=== PATIENT | male | born 1975 | race Caucasian/White ===

== ENCOUNTER 2019-01-04 13:55 | Inpatient (IN) ==
[2019-01-04 15:02] LABS: Bilirubin,Urine Small (Negative); Blood,Urine Negative (Negative); Clarity,Urine Clear (Clear); Color,Urine Dark Yellow (Yellow); Glucose,Urine (UA) Normal (Normal); Ketones,Urine 15 mg/dL (Negative); Leukocyte Esterase,Urine Negative (Negative); Nitrite,Urine Negative (Negative); PH,Urine 5.5 pH Units (5.0-8.0); Protein,Urine 30 mg/dL (Neg-Trace); Specific Gravity,Urine > 1.030 (1.010-1.025); Urobilinogen,Urine Normal (Normal)
[2019-01-04 15:04] LABS: Bacteria,Urine None Seen per hpf (None-Few); Hyaline Casts,Urine Few per lpf (None-Few); Squamous Epithelial Cell,Urine Few per lpf (None-Few); WBC,Urine 0-3 per hpf (0-3)
[2019-01-04 15:18] LABS: Amphetamine Screen,Urine Negative ng/mL (Cutoff=1000); Barbiturate Screen,Urine Negative ng/mL (Cutoff=200); Benzodiazepines Screen,Urine Negative ng/mL (Cutoff=200); Cannabinoid Screen,Urine Positive ng/mL (Cutoff = 50); Cocaine Screen,Urine Negative ng/mL (Cutoff= 300); Opiate Screen,Urine Negative ng/mL (Cutoff=300); Phencyclidine Screen,Urine Negative ng/mL (Cutoff=25)
[2019-01-04 15:26] LABS: Basophils # 0.1 K/mcL (0.0-0.2); Basophils % 0.7 %; Eosinophils % 0.4 %; Hematocrit 42.3 % (37.5-50.1); Hemoglobin 14.7 g/dL (12.9-16.9); Immature Granulocytes % 0.3 % (0-4); Lymphocytes # 2.5 K/mcL (0.6-4.6); Lymphocytes % 24.9 %; Mean Corpuscular HGB Conc 34.8 g/dL (31.6-35.5); Mean Corpuscular Hemoglobin 34.3 pg (28.0-33.3); Mean Corpuscular Volume 98.6 fL (83.0-100.0); Mean Platelet Volume 9.8 fL (9.4-12.4); Monocytes # 0.8 K/mcL (0.0-1.3); Neutrophils # 6.5 K/mcL (1.6-8.9); Platelet Count 175 K/mcL (140-400); Red Blood Count 4.29 M/mcL (4.19-5.50); Red Cell Distribution Width 12.7 % (11.5-14.5); Segmented Neutrophils % 65.7 %
[2019-01-04 15:39] LABS: Acetaminophen < 10 mcg/mL (10-20); BUN/Creatinine Ratio 21 (6-26); Blood Urea Nitrogen 21 mg/dL (6-20); Calcium 9.7 mg/dL (8.6-10.3); Carbon Dioxide 23 mEq/L (23-29); Chloride 104 mEq/L (98-107); Ethanol < 10 mg/dL (Less than 10); Glucose 100 mg/dL (70-105); Osmolality,Calculated 283 (280-300); Potassium 3.6 mEq/L (3.5-5.1); Salicylate < 2.5 mg/dL (15.0-30.0); Sodium 135 mEq/L (136-145); eGFR For African Americans > 60 (> 60); eGFR For Non-African Americans > 60 (> 60)
[2019-01-04] MEDS ORDERED: Acetaminophen 325 MG TABLET PO PRN (18:48)
[2019-01-04] MEDS ORDERED: *HR* LORazepam 2 MG/ML VIAL IM PRN (18:48)
[2019-01-04] MEDS ORDERED: *HR* LORazepam 1 MG TABLET PO PRN (18:48)
[2019-01-04] MEDS ORDERED: Haloperidol Lactate 5 MG/ML VIAL IM PRN (18:48)
[2019-01-04] MEDS ORDERED: hydrOXYzine pamoate 25 MG CAPSULE PO PRN (18:48)
[2019-01-04] MEDS ORDERED: Mag Hydrox/Al Hydrox/Simeth 30 ML UDC PO PRN (18:48)
[2019-01-04] MEDS ORDERED: traZODone 50 MG TABLET PO PRN (18:48)
[2019-01-04] MEDS ORDERED: MOM Conc 10 ML UD.LIQ PO PRN (18:48)
[2019-01-04] MEDS ORDERED: risperiDONE 1 MG TABLET PO ONE (18:52)
[2019-01-04] MEDS ORDERED: *HR* LORazepam 1 MG TABLET PO ONE (18:53)
--- NOTE | 2019-01-04 21:22 | Emergency Department Note ---
Disposition Clinical Impression: Paranoia Disposition: Admitted As Inpatient Condition: Fair Time of Disposition: 21:25 General Adult HPI - General Chief complaint: ED Psychiatric Symptoms Stated complaint: psych eval Time Seen by Provider: 01/04/19 14:02 Source: patient, family Mode of arrival: ambulatory Limitations: no limitations Nursing Notes Reviewed: Yes Vital Signs Reviewed: Yes - History of Present Illness HPI Narrative: Patient is a 43-year-old male with no pertinent past medical history presenting to the ED for evaluation of paranoia and abnormal behavior in which she is walking on the house frequently entering and the next thing in reentering rooms and getting very close to family members faces. And route the patient was attempting to jump out of his vehicle. Denies any SI or HI. Family states that there is no stressors with her his father who recently had a hip replacement is been sleeping in a guest bedroom. Pain Scale: 0 - Related Data Allergies Allergy/AdvReac Type Severity Reaction Status Date / Time No Known Allergies Allergy Verified 01/04/19 15:15 All systems ED: reviewed and negative except as stated. Review of Systems: As Per HPI Constitutional: Denies: fever, chills Cardiovascular: Denies: chest pain, palpitations, dyspnea on exertion Respiratory: Denies: cough, dyspnea, wheezes Gastrointestinal: Denies: abdominal pain, nausea, vomiting, diarrhea Genitourinary: Denies: urgency Musculoskeletal: Denies: back pain Integumentary: Denies: rash Neurological: Denies: headache, weakness, numbness, paresthesias, confusion, abnormal gait, vertigo Psychiatric: Reports: anxiety, other (parnoia). Denies: depression, suicidal thoughts, homicidal thoughts, auditory hallucinations, visual hallucinations Past Medical History - Past Medical History Attestation: Yes The following information was validated with the patient. Medical history: Reports: non-contributory Surgical history: Reports: no surgical history Psychiatric history: Reports: no psych history - Social History Smoking Status: Current every day smoker Smokeless Tobacco Status: No Alcohol use: Reports: none Drug use: Reports: marijuana Physical Exam CONSTITUTIONAL: Alert and oriented X3, well-nourished, well appearing, in no apparent distress HEAD: Normocephalic; atraumatic. EYES: PERRL, no scleral icterus. NOSE: The nose is normal in appearance without rhinorrhea RESP: Normal chest excursion with respiration; breath sounds clear and equal bilaterally; no wheezes, rhonchi, or rales CARD: Regular rhythm, without murmurs, rub or gallop ABD: Non-distended; non-tender, soft,without rigidity, rebound or guarding SKIN: Normal for age and race; warm and dry; no apparent lesions PSYCH: Parnoid. Withdrawn. Denies SI/HI. - General Limitations: no limitations General appearance: alert Course Course Narrative: Patient is medically cleared and evaluated by the 118 which is accepted for admission for placement. Vital Signs Temperature 98.6 F 01/04/19 13:57 Pulse Rate 99 01/04/19 13:57 Respiratory Rate 18 01/04/19 13:57 Blood Pressure 148/99 01/04/19 13:57 O2 Sat by Pulse Oximetry 97 01/04/19 13:57 Temperature 98.6 F 01/04/19 19:40 Pulse Rate 101 01/04/19 19:40 Respiratory Rate 18 01/04/19 19:40 Blood Pressure 145/91 01/04/19 19:40 O2 Sat by Pulse Oximetry 94 01/04/19 19:40 Oxygen Delivery Oxygen Delivery Room Air Medical Decision Making - Medical Records Medical records reviewed: Yes I reviewed the patient's medical records. - Lab Data Lab results reviewed: Yes I reviewed the patient's lab results. Result diagrams: 01/04/19 15:08 01/04/19 15:08 Lab Results 01/04/19 01/04/19 01/04/19 Range/Units 14:50 14:50 15:08 WBC 10.0 (4.3-11.1) K/mcL RBC 4.29 (4.19-5.50) M/mcL Hgb 14.7 (12.9-16.9) g/dL Hct 42.3 (37.5-50.1) % MCV 98.6 (83.0-100.0) fL MCH 34.3 H (28.0-33.3) pg MCHC 34.8 (31.6-35.5) g/dL RDW 12.7 (11.5-14.5) % Plt Count 175 (140-400) K/mcL MPV 9.8 (9.4-12.4) fL Immature Gran % 0.3 (0-4) % Seg Neutrophils % 65.7 % Lymphocytes % 24.9 % Monocytes % 8.0 % Eosinophils % 0.4 % Basophils % 0.7 % Neutrophils # 6.5 (1.6-8.9) K/mcL Lymphocytes # 2.5 (0.6-4.6) K/mcL Monocytes # 0.8 (0.0-1.3) K/mcL Eosinophils # 0.0 (0.0-0.6) K/mcL Basophils # 0.1 (0.0-0.2) K/mcL Sodium (136-145) mEq/L Potassium (3.5-5.1) mEq/L Chloride (98-107) mEq/L Carbon Dioxide (23-29) mEq/L BUN (6-20) mg/dL Creatinine (0.70-1.30) mg/dL Est GFR ( Amer) (> 60) Est GFR (Non-Af Amer) (> 60) BUN/Creatinine Ratio (6-26) Glucose (70-105) mg/dL Calculated Osmolality (280-300) Calcium (8.6-10.3) mg/dL Urine Color Dark Yellow (Yellow) Urine Clarity Clear (Clear) Urine pH 5.5 (5.0-8.0) pH Units Ur Specific [place] > 1.030 H (1.010-1.025) Urine Protein 30 H (Neg-Trace) mg/dL Urine Glucose (UA) Normal (Normal) mg/dL Urine Ketones 15 H (Negative) mg/dL Urine Blood Negative (Negative) Urine Nitrite Negative (Negative) Urine Bilirubin Small H (Negative) Urine Urobilinogen Normal (Normal) mg/dL Ur Leukocyte Esterase Negative (Negative) Urine Microscopic RBC 5-15 H (0-3) per hpf Urine Microscopic WBC 0-3 (0-3) per hpf Ur Squamous Epith Cells Few (None-Few) per lpf Urine Bacteria None Seen (None-Few) per hpf Hyaline Casts Few (None-Few) per lpf Salicylates (15.0-30.0) mg/dL Urine Opiates Screen Negative (Cbldhf=495) ng/mL Ur Buprenorphine Scrn Negative (Cutoff=5) ng/mL Acetaminophen (10-20) mcg/mL Ur Barbiturates Screen Negative (Idfjay=970) ng/mL Ur Phencyclidine Scrn Negative (Cutoff=25) ng/mL Ur Amphetamines Screen Negative (Wmwzgq=1670) ng/mL U Benzodiazepines Scrn Negative (Ughucg=323) ng/mL Urine Cocaine Screen Negative (Cutoff= 300) ng/mL U Marijuana (THC) Screen Positive H (Cutoff = 50) ng/mL Ur Drug Screen Interp See Below Ethyl Alcohol (Less than 10) mg/dL 01/04/19 Range/Units 15:08 WBC (4.3-11.1) K/mcL RBC (4.19-5.50) M/mcL Hgb (12.9-16.9) g/dL Hct (37.5-50.1) % MCV (83.0-100.0) fL MCH (28.0-33.3) pg MCHC (31.6-35.5) g/dL RDW (11.5-14.5) % Plt Count (140-400) K/mcL MPV (9.4-12.4) fL Immature Gran % (0-4) % Seg Neutrophils % % Lymphocytes % % Monocytes % % Eosinophils % % Basophils % % Neutrophils # (1.6-8.9) K/mcL Lymphocytes # (0.6-4.6) K/mcL Monocytes # (0.0-1.3) K/mcL Eosinophils # (0.0-0.6) K/mcL Basophils # (0.0-0.2) K/mcL Sodium 135 L (136-145) mEq/L Potassium 3.6 (3.5-5.1) mEq/L Chloride 104 (98-107) mEq/L Carbon Dioxide 23 (23-29) mEq/L BUN 21 H (6-20) mg/dL Creatinine 1.00 (0.70-1.30) mg/dL Est GFR ( Amer) > 60 (> 60) Est GFR (Non-Af Amer) > 60 (> 60) BUN/Creatinine Ratio 21 (6-26) Glucose 100 (70-105) mg/dL Calculated Osmolality 283 (280-300) Calcium 9.7 (8.6-10.3) mg/dL Urine Color (Yellow) Urine Clarity (Clear) Urine pH (5.0-8.0) pH Units Ur Specific [place] (1.010-1.025) Urine Protein (Neg-Trace) mg/dL Urine Glucose (UA) (Normal) mg/dL Urine Ketones (Negative) mg/dL Urine Blood (Negative) Urine Nitrite (Negative) Urine Bilirubin (Negative) Urine Urobilinogen (Normal) mg/dL Ur Leukocyte Esterase (Negative) Urine Microscopic RBC (0-3) per hpf Urine Microscopic WBC (0-3) per hpf Ur Squamous Epith Cells (None-Few) per lpf Urine Bacteria (None-Few) per hpf Hyaline Casts (None-Few) per lpf Salicylates < 2.5 L (15.0-30.0) mg/dL Urine Opiates Screen (Ypbtyc=737) ng/mL Ur Buprenorphine Scrn (Cutoff=5) ng/mL Acetaminophen < 10 L (10-20) mcg/mL Ur Barbiturates Screen (Fowtkm=456) ng/mL Ur Phencyclidine Scrn (Cutoff=25) ng/mL Ur Amphetamines Screen (Gxyicc=9229) ng/mL U Benzodiazepines Scrn (Kaelbq=429) ng/mL Urine Cocaine Screen (Cutoff= 300) ng/mL U Marijuana (THC) Screen (Cutoff = 50) ng/mL Ur Drug Screen Interp Ethyl Alcohol < 10 (Less than 10) mg/dL Attestation Statement - Attestation Attestation: I examined this patient and my medical decision-making was reviewed with the Resident Physician. I agree with the documented findings, disposition and treatment plan as described except to the extent set forth below. Patient is here, somewhat reclusive on examination. The patient does seem to have some paranoia. The patient I do believe most likely has a schizophrenia. The patient has clear breath sounds and examination, regular rate and rhythm, medically clear from my standpoint. Patient this time is going to be admitted to psychiatric services.
--- NOTE | 2019-01-05 09:12 | Psychiatry History & Physical ---
Date of Encounter: 01/05/19 Time of Encounter: 08:20 History of Present Illness Patient Stated Chief Complaint: "I don't know" Medicare Admission Attestation: For traditional Medicare patients the provided hospital inpatient services are reasonable and necessary and in the case of services not specified as inpatient-only under 42 CFR 419.22 (n), that they are appropriately provided as inpatient services in accordance 42 CFR 412.3. For Critical Access Hospital the patient may reasonably be expected to be discharged or transferred to a hospital within 96 hours after admission to the Critical Access Hospital. Admitted From: Emergency Dept Plans for Post Hospital Care: Home History of Present Illness: Mr. Tee is a 43 year old male who presented to the emergency room with his mother and aunt due to erratic behavior. He has been responding to internal stimuli. He has been sleeping on the floor by his father and getting up frequently at night shake his father or run into his mother's room and place his face close to her face. He has been increasingly paranoid. He has become agitated at times. He recently tried to jump out of a moving vehicle in an attempt to harm himself. He denies depression but does report hearing voices telling him to do things. He denies visual hallucinations but appears to be looking around as if he is responding to visual hallucinations. He does think people are trying to harm him. Past Med Surg Social Fam HX - Past Medical History Medical history: non-contributory - Past Psychiatric History Psychiatric history: Denies: prior suicide attempt, previous psychiatric hospitalization Past psychiatric history details: Patient has been having periods of bizarre behavior for several years. He also has a negative symptoms associated with schizophrenia of social withdrawal and lack of motivation. He sought outpatient treatment once but they dismissed him from care. He has never been tried on medications or been in a psychiatric hospital. He denies prior suicide attempts before trying to jump out of the car. Family psychiatric history: No Family History of Suicide: None - Past Surgical History Surgical History: no surgical history - Social History Smoking Status: Current every day smoker Smokeless Tobacco Status: No Alcohol use: none Drug use: marijuana Occupational status: unemployed Current living situation: Home, With Family Activity Level: Independent ambulation Recent Out of Country Travel Within the Last 8 Weeks: No Exposure or Possible Exposure to Illness During Travel: No Medications & Allergies Allergy/AdvReac Type Severity Reaction Status Date / Time No Known Allergies Allergy Verified 01/04/19 15:15 Review of Systems Constitutional: Denies: fever, chills, weakness, weight change Eyes: Denies: eye pain, vision change Ears, Nose, Throat: Denies: ear pain, throat pain, dental pain, hearing loss, congestion Cardiovascular: Denies: chest pain Respiratory: Denies: cough Gastrointestinal: Denies: abdominal pain Genitourinary male: Denies: urgency Musculoskeletal: Denies: back pain Integumentary: Denies: rash Neurological: Denies: headache Psychiatric: Reports: depression, abnormal sleep pattern, suicidal ideation, auditory hallucinations, visual hallucinations Endocrine: Denies: fatigue Hematologic/Lymphatic: Denies: easy bleeding Allergic/Immunologic: Denies: facial swelling Exam - HEENT Head exam IM: Present: atraumatic Eye exam IM: Present: EOMI ENT exam IM: Present: normal oropharynx - Neurological Neurological exam: Present: CN II-XII intact (Grossly) - Respiratory Respiratory exam IM: Absent: respiratory distress - GI/Abdominal GI/Abdominal exam IM: Present: no peritoneal signs - Extremities Extremities exam IM: Present: full ROM - Skin Skin exam IM: Absent: abrasion - Constitutional Vitals: Temp Pulse Resp BP Pulse Ox 98.6 F 101 18 145/91 94 01/04/19 19:40 01/04/19 19:40 01/04/19 19:40 01/04/19 19:40 01/04/19 19:40 General appearance: age & developmentally appropriate, disheveled - Musculoskeletal Gait: slow Station: stooped Strength & Tone: normal for patient - Psychiatric Patient Orientation: Yes Person, Yes Time, Yes Place Level of alertness: Alert Behavior: guarded, suspicious, withdrawn Psychomotor activity: Slowed Eye Contact: Minimal Contact Mood Description: Other Patient description of mood: "I do not know" Affect description: flat Speech Volume: Soft/Quiet Speech pattern: slowed Language & Vocabulary: consistent with education Thought Process: Slowed Thinking Thought Content: Yes Suicidal ideation, No Homicidal ideation, Yes Paranoid delusion Perceptual Disturbances: Yes Auditory hallucinations, Yes Visual hallucinations Attention Span Ability: Unable to Focus, Unable to Sustain Attention Memory Description: Grossly Intact Patient Reliability: Questionable Historian Fund of knowledge: Yes average Intelligence Estimate: Average Judgment: Poor Insight: None Results - Drug Levels and Toxicology Drug Levels and Toxicology: Drug Levels and Toxicity 01/04/19 01/04/19 14:50 15:08 Urine Opiates Screen Negative Acetaminophen < 10 L Ur Barbiturates Screen Negative Ur Phencyclidine Scrn Negative Ur Amphetamines Screen Negative U Benzodiazepines Scrn Negative Urine Cocaine Screen Negative U Marijuana (THC) Screen Positive H Ethyl Alcohol < 10 - Labs Labs: Laboratory Last Values WBC 10.0 K/mcL (4.3-11.1) 01/04/19 15:08 RBC 4.29 M/mcL (4.19-5.50) 01/04/19 15:08 Hgb 14.7 g/dL (12.9-16.9) 01/04/19 15:08 Hct 42.3 % (37.5-50.1) 01/04/19 15:08 MCV 98.6 fL (83.0-100.0) 01/04/19 15:08 MCH 34.3 pg (28.0-33.3) H 01/04/19 15:08 MCHC 34.8 g/dL (31.6-35.5) 01/04/19 15:08 RDW 12.7 % (11.5-14.5) 01/04/19 15:08 Plt Count 175 K/mcL (140-400) 01/04/19 15:08 MPV 9.8 fL (9.4-12.4) 01/04/19 15:08 Immature Gran % 0.3 % (0-4) 01/04/19 15:08 Seg Neutrophils % 65.7 % 01/04/19 15:08 Lymphocytes % 24.9 % 01/04/19 15:08 Monocytes % 8.0 % 01/04/19 15:08 Eosinophils % 0.4 % 01/04/19 15:08 Basophils % 0.7 % 01/04/19 15:08 Neutrophils # 6.5 K/mcL (1.6-8.9) 01/04/19 15:08 Lymphocytes # 2.5 K/mcL (0.6-4.6) 01/04/19 15:08 Monocytes # 0.8 K/mcL (0.0-1.3) 01/04/19 15:08 Eosinophils # 0.0 K/mcL (0.0-0.6) 01/04/19 15:08 Basophils # 0.1 K/mcL (0.0-0.2) 01/04/19 15:08 Sodium 135 mEq/L (136-145) L 01/04/19 15:08 Potassium 3.6 mEq/L (3.5-5.1) 01/04/19 15:08 Chloride 104 mEq/L (98-107) 01/04/19 15:08 Carbon Dioxide 23 mEq/L (23-29) 01/04/19 15:08 BUN 21 mg/dL (6-20) H 01/04/19 15:08 Creatinine 1.00 mg/dL (0.70-1.30) 01/04/19 15:08 Est GFR ( Amer) > 60 (> 60) 01/04/19 15:08 Est GFR (Non-Af Amer) > 60 (> 60) 01/04/19 15:08 BUN/Creatinine Ratio 21 (6-26) 01/04/19 15:08 Glucose 100 mg/dL (70-105) 01/04/19 15:08 Calculated Osmolality 283 (280-300) 01/04/19 15:08 Calcium 9.7 mg/dL (8.6-10.3) 01/04/19 15:08 Urine Color Dark Yellow (Yellow) 01/04/19 14:50 Urine Clarity Clear (Clear) 01/04/19 14:50 Urine pH 5.5 pH Units (5.0-8.0) 01/04/19 14:50 Ur Specific [place] > 1.030 (1.010-1.025) H 01/04/19 14:50 Urine Protein 30 mg/dL (Neg-Trace) H 01/04/19 14:50 Urine Glucose (UA) Normal mg/dL (Normal) 01/04/19 14:50 Urine Ketones 15 mg/dL (Negative) H 01/04/19 14:50 Urine Blood Negative (Negative) 01/04/19 14:50 Urine Nitrite Negative (Negative) 01/04/19 14:50 Urine Bilirubin Small (Negative) H 01/04/19 14:50 Urine Urobilinogen Normal mg/dL (Normal) 01/04/19 14:50 Ur Leukocyte Esterase Negative (Negative) 01/04/19 14:50 Urine Microscopic RBC 5-15 per hpf (0-3) H 01/04/19 14:50 Urine Microscopic WBC 0-3 per hpf (0-3) 01/04/19 14:50 Ur Squamous Epith Cells Few per lpf (None-Few) 01/04/19 14:50 Urine Bacteria None Seen per hpf (None-Few) 01/04/19 14:50 Hyaline Casts Few per lpf (None-Few) 01/04/19 14:50 Salicylates < 2.5 mg/dL (15.0-30.0) L 01/04/19 15:08 Urine Opiates Screen Negative ng/mL (Bvtwsi=473) 01/04/19 14:50 Ur Buprenorphine Scrn Negative ng/mL (Cutoff=5) 01/04/19 14:50 Acetaminophen < 10 mcg/mL (10-20) L 01/04/19 15:08 Ur Barbiturates Screen Negative ng/mL (Qffsne=222) 01/04/19 14:50 Ur Phencyclidine Scrn Negative ng/mL (Cutoff=25) 01/04/19 14:50 Ur Amphetamines Screen Negative ng/mL (Skeeue=4367) 01/04/19 14:50 U Benzodiazepines Scrn Negative ng/mL (Okfvlq=498) 01/04/19 14:50 Urine Cocaine Screen Negative ng/mL (Cutoff= 300) 01/04/19 14:50 U Marijuana (THC) Screen Positive ng/mL (Cutoff = 50) H 01/04/19 14:50 Ur Drug Screen Interp See Below 01/04/19 14:50 Ethyl Alcohol < 10 mg/dL (Less than 10) 01/04/19 15:08 Assessment and Plan (1) Unspecified psychosis Current visit: Yes Status: Acute Plan: Admit inpatient for safety and stabilization, Close observation, Suicide Precautions per unit protocol, Encourage participation in unit milieu, Group Therapy, Monitor sleep, Monitor appetite Additional Plan: Rule out schizophrenia. We will continue Risperdal 1 mg by mouth daily at bedtime and Ativan 1 mg by mouth daily at bedtime which he got under my order last night in the emergency room and seemed to do well with. Encourage group attendance. Therapist will work on linkage. Aims equals 0 Risks, benefits, side effects, alternatives discussed w/pt: Yes Patient agreeable to treatment: Yes Plans for Post Hospital Care: Home Estimated Length of Stay (Days): 3 Qualifiers: Psychosis type: unspecified psychosis type Qualified Code(s): F29 - Unspec ified psychosis not due to a substance or known physiological condition
[2019-01-05] MEDS: *HR* LORazepam 1 MG TABLET PO SCH (20:48)
[2019-01-05] MEDS ORDERED: risperiDONE 1 MG TABLET PO SCH (21:00)
[2019-01-06] MEDS: RisperiDONE-M 1 MG TAB.RAPDIS PO SCH (09:38)
--- NOTE | 2019-01-06 09:49 | Psychiatry Progress Note ---
Date of Encounter: 01/06/19 Time of Encounter: 09:10 Subjective Interval history: Patient appeared to have been trying to cheek his medication last night. He would not open his mouth consistently for nursing and then went directly back to his room and was noted to spit something out in a cup and when nursing asked to look at it he flushed it down the toilet. He did then later need when necessary Haldol, Benadryl, and Ativan due to severe agitation and responding to internal stimuli and calling out and screaming. He continues to appear paranoid and guarded and to be responding to internal stimuli. Review of Systems Psychiatric: Reports: depression, abnormal sleep pattern, suicidal ideation, auditory hallucinations, visual hallucinations, confusion, irritability, mood swings Results - Vital Signs Vital Signs: Temp Pulse Resp BP Pulse Ox 98.9 F 95 16 130/89 96 01/05/19 20:10 01/05/19 20:10 01/05/19 20:10 01/05/19 20:10 01/05/19 20:10 Assessment and Plan (1) Unspecified psychosis Current visit: Yes Status: Acute Plan: Continue hospitalization, Close observation, Suicide Precautions per unit protocol, Encourage participation in unit milieu, Group Therapy, Monitor sleep, Monitor appetite Additional Plan: We will switch Risperdal to M tabs and increase to 2 mg by mouth daily at bedtime for further treatment of his psychosis. Continue Ativan as at times he seems to have almost mild catatonic like symptoms in terms of his staring and some posturing. Encourage group attendance. Risks, benefits, side effects, alternatives discussed w/pt: Yes Patient agreeable to treatment: Yes Qualifiers: Psychosis type: unspecified psychosis type Qualified Code(s): F29 - Unspecified psychosis not due to a substance or known physiological condition Consult Discharge Plan - Plan Referrals: NONE,PCP [Primary Care Provider] - Psychiatry Exam - Constitutional Vitals: Temp Pulse Resp BP Pulse Ox 98.9 F 95 16 130/89 96 01/05/19 20:10 01/05/19 20:10 01/05/19 20:10 01/05/19 20:10 01/05/19 20:10 General appearance: disheveled, thin - Musculoskeletal Gait: other (Pacing) Station: stooped Strength & Tone: mild weakness - Psychiatric Patient Orientation: Yes Person, Yes Time, Yes Place Level of alertness: Alert Behavior: hostile, guarded, suspicious Psychomotor activity: Increased Eye Contact: Minimal Contact Mood Description: Labile Patient description of mood: "I do not know" Affect description: labile Speech Volume: Loud Speech pattern: excessive Language & Vocabulary: consistent with education Thought Process: Tangential Thought Content: Yes Paranoid delusion Perceptual Disturbances: Yes Auditory hallucinations, Yes Visual hallucinations Attention Span Ability: Unable to Focus, Unable to Sustain Attention Memory Description: Grossly Intact Patient Reliability: Questionable Historian Fund of knowledge: Yes average Intelligence Estimate: Average Judgment: Poor Insight: None
[2019-01-06] MEDS: *HR* LORazepam 1 MG TABLET PO SCH (21:39)
--- NOTE | 2019-01-07 09:04 | Psychiatry Progress Note ---
Date of Encounter: 01/07/19 Time of Encounter: 08:30 Subjective Interval history: Patient refused his medications last night. He continues to be grossly psychotic with responding to internal stimuli being very guarded appearing paranoid and suspicious. He is withdrawn. He has thought blocking. At times he calls out or screams in his room. He has no insight into his illness. He cannot see why his parents are concerned or why he needs medication. Review of Systems Psychiatric: Reports: depression, abnormal sleep pattern, suicidal ideation, auditory hallucinations, visual hallucinations, confusion, irritability, mood swings Results - Vital Signs Vital Signs: Temp Pulse Resp BP Pulse Ox 98.2 F 105 20 121/84 96 01/06/19 09:00 01/06/19 09:00 01/06/19 09:00 01/06/19 09:00 01/06/19 09:00 Assessment and Plan (1) Unspecified psychosis Current visit: Yes Status: Acute Plan: Continue hospitalization, Close observation, Suicide Precautions per unit protocol, Encourage participation in unit milieu, Group Therapy, Monitor sleep, Monitor appetite Additional Plan: Continue to encourage medications. He seemed to do much better after he had had some Ativan and Risperdal night. If he will not comply with med ications consider probate for forced medications. Risks, benefits, side effects, alternatives discussed w/pt: Yes Patient agreeable to treatment: Yes Qualifiers: Psychosis type: unspecified psychosis type Qualified Code(s): F29 - Unspecified psychosis not due to a substance or known physiological condition Consult Discharge Plan - Plan Referrals: NONE,PCP [Primary Care Provider] - Psychiatry Exam - Constitutional Vitals: Temp Pulse Resp BP Pulse Ox 98.2 F 105 20 121/84 96 01/06/19 09:00 01/06/19 09:00 01/06/19 09:00 01/06/19 09:00 01/06/19 09:00 General appearance: malodorous, thin - Musculoskeletal Gait: slow Station: stooped Strength & Tone: mild weakness - Psychiatric Patient Orientation: Yes Person, Yes Time, Yes Place Level of alertness: Alert Behavior: guarded, suspicious, withdrawn Psychomotor activity: Slowed Eye Contact: Minimal Contact Mood Description: Depressed Patient description of mood: "I do not know" Affect description: flat Speech Volume: Soft/Quiet Speech pattern: slowed, limited, monotone Language & Vocabulary: consistent with education Thought Process: Thought Blocking Thought Content: No Suicidal ideation, No Homicidal ideation, Yes Paranoid delusion Perceptual Disturbances: Yes Auditory hallucinations, Yes Visual hallucinations Attention Span Ability: Unable to Focus, Unable to Sustain Attention Memory Description: Grossly Intact Patient Reliability: Questionable Historian Fund of knowledge: Yes average Intelligence Estimate: Average Judgment: Poor Insight: None
[2019-01-07] MEDS: RisperiDONE-M 1 MG TAB.RAPDIS PO SCH (10:14)
[2019-01-07] MEDS: *HR* LORazepam 1 MG TABLET PO SCH (20:27)
[2019-01-08] MEDS: RisperiDONE-M 1 MG TAB.RAPDIS PO SCH ×2 (09:08→22:00)
--- NOTE | 2019-01-08 09:39 | Psychiatry Progress Note ---
Date of Encounter: 01/08/19 Time of Encounter: 09:35 Subjective Interval history: According to staff client is compliant with the Risperdal provided staff monitor him to insure no cheeking. Today client reports the medication is perfect and really helping him. Staff have not noted a change in him yet. Appears paranoid, suspicious, and responding to IS. Per family client has had bouts of this behavior for sixteen years but has never received any form of mental health treatment. Has an intake appointment on 01/15 but family felt they could not wait that long for client to be seen. Goal is to stabilize client so that he can attend that appointment. Client denies SI/HI/AH/VH but is likely not being truthful about his reported lack of hallucinations. No real insight. According to staff he has been isolated on the unit. Not attending groups. Asking to leave. Review of Systems Constitutional: Denies: fever, chills, weakness, weight change Eyes: Denies: eye pain, vision change Ears, Nose, Throat: Denies: ear pain, throat pain, dental pain, hearing loss, congestion Cardiovascular: Denies: chest pain, palpitations, dyspnea on exertion Respiratory: Denies: cough, dyspnea, wheezes Gastrointestinal: Denies: abdominal pain, nausea, vomiting, diarrhea, constipation Musculoskeletal: Denies: joint swelling, joint pain Neurological: Denies: headache, weakness, numbness, memory loss Psychiatric: Reports: depression, abnormal sleep pattern, suicidal ideation, auditory hallucinations, visual hallucinations, confusion, irritability, mood swings Results - Vital Signs Vital Signs: Temp Pulse Resp BP Pulse Ox 98.1 F 125 18 128/89 98 01/07/19 21:00 01/07/19 21:00 01/07/19 21:00 01/07/19 21:00 01/07/19 21:00 Assessment and Plan (1) Unspecified psychosis Current visit: Yes Status: Acute Plan: Continue hospitalization, Close observation, Suicide Precautions per unit protocol, Encourage participation in unit milieu, Group Therapy, Monitor sleep, Monitor appetite Risks, benefits, side effects, alternatives discussed w/pt: Yes Patient agreeable to treatment: Yes Qualifiers: Psychosis type: unspecified psychosis type Qualified Code(s): F29 - Unspecified psychosis not due to a substance or known physiological condition Consult Discharge Plan - Plan Referrals: NONE,PCP [Primary Care Provider] - Psychiatry Exam - Constitutional Vitals: Temp Pulse Resp BP Pulse Ox 98.1 F 125 18 128/89 98 01/07/19 21:00 01/07/19 21:00 01/07/19 21:00 01/07/19 21:00 01/07/19 21:00 General appearance: disheveled - Musculoskeletal Gait: normal Station: relaxed Strength & Tone: normal for patient - Psychiatric Patient Orientation: Yes Person, Yes Time, Yes Place Level of alertness: Alert Behavior: calm, cooperative Psychomotor activity: Normal Eye Contact: Maintains Eye Contact Mood Description: Anxious Affect description: congruent with mood Speech Volume: Normal Speech pattern: normal rate, normal rhythm, normal tone, fluent, spontaneous Language & Vocabulary: consistent with education Thought Process: Evasive Thought Content: No Suicidal ideation, No Homicidal ideation, No Overt delusions Perceptual Disturbances: Yes Reacting to internal stimuli Attention Span Ability: Capable of Focused Attention Memory Description: Grossly Intact Patient Reliability: Questionable Historian Fund of knowledge: Yes abstraction ability Intelligence Estimate: Average Judgment: Limited Insight: Minimal
[2019-01-08] MEDS: *HR* LORazepam 1 MG TABLET PO SCH (21:46)
[2019-01-09] MEDS: RisperiDONE-M 1 MG TAB.RAPDIS PO SCH ×2 (09:04→20:50)
--- NOTE | 2019-01-09 12:07 | Psychiatry Progress Note ---
Date of Encounter: 01/09/19 Time of Encounter: 12:03 Subjective Interval history: Client continues to deny SI/HI/AH/VH. Still appears to be responding to IS at times but it seems like client has been symptomatic with no treatment for years and some psychotic symptoms may be refractory to treatment at this point. Client has not demonstrated any dangerous behaviors on the unit. He has mostly stayed to himself. Withdrawn to room. No group attendance. However, staff spoke with his family and they feel he is doing better. They are willing to have client come home. Client's pink slip expires tomorrow. He will not be willing to sign in. Do not feel he is probatable at this point. Would benefit from a little more time in the hospital but will likely be discharged tomorrow when pink slip expires. Encouraged client to be out of his room more today and he agreed to try. States he is eating and sleeping well. Taking medication per staff. Review of Systems Constitutional: Denies: fever, chills, weakness, weight change Eyes: Denies: eye pain, vision change Ears, Nose, Throat: Denies: ear pain, throat pain, dental pain, hearing loss, congestion Cardiovascular: Denies: chest pain, palpitations, dyspnea on exertion Respiratory: Denies: cough, dyspnea, wheezes Gastrointestinal: Denies: abdominal pain, nausea, vomiting, diarrhea, constipation Musculoskeletal: Denies: joint swelling, joint pain Neurological: Denies: headache, weakness, numbness, memory loss Psychiatric: Reports: depression, abnormal sleep pattern, suicidal ideation, auditory hallucinations, visual hallucinations, confusion, irritability, mood swings Results - Vital Signs Vital Signs: Temp Pulse Resp BP Pulse Ox 98.1 F 100 16 121/89 98 01/09/19 09:00 01/09/19 09:00 01/09/19 09:00 01/09/19 09:00 01/09/19 09:00 Assessment and Plan (1) Unspecified psychosis Current visit: Yes Status: Acute Plan: Continue hospitalization, Close observation, Suicide Precautions per unit protocol, Encourage participation in unit milieu, Group Therapy, Monitor sleep, Monitor appetite Risks, benefits, side effects, alternatives discussed w/pt: Yes Patient agreeable to treatment: Yes Qualifiers: Psychosis type: unspecified psychosis type Qualified Code(s): F29 - Unspecified psychosis not due to a substance or known physiological condition Consult Discharge Plan - Plan Referrals: NONE,PCP [Primary Care Provider] - Psychiatry Exam - Constitutional Vitals: Temp Pulse Resp BP Pulse Ox 98.1 F 100 16 121/89 98 01/09/19 09:00 01/09/19 09:00 01/09/19 09:00 01/09/19 09:00 01/09/19 09:00 General appearance: unkempt - Musculoskeletal Gait: normal Station: relaxed Strength & Tone: normal for patient - Psychiatric Patient Orientation: Yes Person, Yes Time, Yes Place Level of alertness: Alert Behavior: calm, cooperative Psychomotor activity: Normal Eye Contact: Maintains Eye Contact Mood Description: Anxious Affect description: congruent with mood Speech Volume: Soft/Quiet Speech pattern: limited Thought Process: Thought Blocking Thought Content: No Suicidal ideation, No Homicidal ideation, No Overt delusions Perceptual Disturbances: Yes Reacting to internal stimuli Attention Span Ability: Capable of Focused Attention Memory Description: Grossly Intact Patient Reliability: Questionable Historian Fund of knowledge: Yes abstraction ability, Yes aware of current events Intelligence Estimate: Average Judgment: Fair Insight: Minimal
[2019-01-09] MEDS: *HR* LORazepam 1 MG TABLET PO SCH (20:50)
[2019-01-10] MEDS: RisperiDONE-M 1 MG TAB.RAPDIS PO SCH (09:23)
[2019-01-10 09:35] VITALS: BP 125/88
--- NOTE | 2019-01-10 09:57 | Discharge Summary ---
Date of Encounter: 01/10/19 Time of Encounter: 09:55 Diagnosis - Discharge Diagnosis (1) Unspecified psychosis Status: Acute Qualifiers: Psychosis type: unspecified psychosis type Qualified Code(s): F29 - Unspecified psychosis not due to a substance or known physiological condition Medications - Discharge Medications Prescriptions: RisperiDONE-M [RisperDAL M-TAB] 2 mg PO BID #120 tab.rapdis LORazepam [Ativan] 1 mg PO HS #0 tablet 01/10/19 [Rx] RisperiDONE-M [RisperDAL M-TAB] 2 mg PO BID #120 tab.rapdis 01/10/19 [Rx] Allergy/AdvReac Type Severity Reaction Status Date / Time No Known Allergies Allergy Verified 01/04/19 15:15 Results Procedures and tests throughout hospitalization: Completed Lab Orders Category Date Time Status Acetaminophen Stat Lab 01/04/19 15:08 Completed Basic Metabolic Panel Stat Lab 01/04/19 15:08 Completed Complete Blood Count [HEME] Stat Lab 01/04/19 15:08 Completed Drug Screen, Urine [UCHEM] Stat Lab 01/04/19 14:50 Completed Ethanol Stat Lab 01/04/19 15:08 Completed Salicylate Stat Lab 01/04/19 15:08 Completed Urinalysis reflex Microscopic [URIN] Stat Lab 01/04/19 14:50 Completed Provider Date of admission: 01/04/19 18:40 Primary care physician: PCP NONE Discharging clinician: Tatiana Tay Psychiatry Exam - Constitutional Vitals: Temp Pulse Resp BP Pulse Ox 97.5 F L 103 16 125/88 98 01/10/19 09:00 01/10/19 09:00 01/10/19 09:00 01/10/19 09:00 01/10/19 09:00 General appearance: disheveled - Musculoskeletal Gait: normal Station: relaxed Strength & Tone: normal for patient - Psychiatric Patient Orientation: Yes Person, Yes Time, Yes Place Level of alertness: Alert Behavior: calm, cooperative Psychomotor activity: Normal Eye Contact: Maintains Eye Contact Mood Description: Anxious Affect description: congruent with mood Speech Volume: Soft/Quiet Speech pattern: limited Language & Vocabulary: consistent with education Thought Process: Thought Blocking Thought Content: No Suicidal ideation, No Homicidal ideation, No Overt delusions Perceptual Disturbances: No Reacting to internal stimuli, No Auditory hallucinations, No Visual hallucinations Attention Span Ability: Capable of Focused Attention Memory Description: Grossly Intact Patient Reliability: Questionable Historian Fund of knowledge: Yes abstraction ability Intelligence Estimate: Average Judgment: Fair Insight: Minimal Hospital Course Hospital course: Mr. Tee is a 43 year old male who was admitted for paranoia and bizarre behaviors at home. Client has no mental health history but he lives with his family and they report he has acted this way off and on for close to twenty years. Paranoia had intensified recently and family scheduled an outpatient appointment for client on 01/15/19 but ended up bringing him to the ER due to not wanting to wait that long. Client was not happy about being in the hospital and initially refused treatment/cheeked meds. Eventually he became more comfortable on the unit and became complaint with dissolvable Risperdal M-tabs. His psychosis improved although he remains rather isolative and guarded. Some thought blocking/perception issues. However, client has clearly had mental illness for a long time without any intervention and some of his symptoms are likely refractory to treatment at this point. Client did not attend any groups yesterday but he was cooperative with being out of his room more and states he tried to socialize some. He has been eating and sleeping well. He has not evidenced any dangerous behaviors this hospitalization. He has consistently denied SI, intent, or plan. He has also denied HI/AH/VH. Staff have seen him responding to internal stimuli so he was likely untruthful about his hallucinations but this press writer did not observe any active responding today. Staff spoke with family yesterday and they feel client is doing better. They are agreeable to having client come home. He still has his appointment on the so he will have quick outpatient follow-up. Total time spent with client greater than 30 minutes. Patient was educated of his diagnosis and the risks, benefits, and side effects of this treatment and alternative treatment options and was monitored for responsiveness and side effects. Mood, anxiety, sleep, appetite, and interest improved, as did future orientation. Self-harm thoughts subsided, thinking cleared, psychosis resolved, and mood stabilized. Patient was able to attend both individual and group therapy sessions as well as meeting with the psychiatrist daily and urged to discuss any medication or treatment issues or other concerns. The patient was educated primarily by verbal means about their diagnosis and manifestations in their life. The option for treatment including group and individual therapy programming was offered to the patient in the use of medications with all their potential risks, benefits, and side effects were discussed with the patient at length. The patient was given the opportunity to ask questions and was noted to participate in the treatment in the planning process. The patient felt ready and eager to be discharged from the inpatient psychiatric unit to continue on with treatment as an outpatient. The patient agreed that he is safe for this disposition. The patient was considered to be able to participate in informed consent and decision making with respect to medical, legal, and financial issues of the time of discharge. At the time of discharge the patient adamantly denied any concerns for lethality including suicidal or homicidal thoughts ideations or plans and was future oriented toward ongoing mental health care, medical follow-up and sobriety. - Time Spent with Patient Total time spent providing and/or coordinating discharge services: Greater than 30 minutes Assessment and Plan - Patient/Caregiver Discharge Instructions Activity: resume usual activities as tolerated Diet: regular diet - Follow up Plan Follow up with: NONE,PCP [Primary Care Provider] - Functional capacity at discharge: independent ambulation Overall status at discharge: Stable Disposition: Home, Self-Care Quality - Multiple Antipsychotics Patient discharged on 2 or more antipsychotic medications: No Procedures - Procedures Procedures: Medication Management, Crisis Stabilization, Supportive Therapy, Group Therapy
== END 2019-01-10 11:25 | disposition home or self-care (01) | DRG 751 ==
LOC: EMEROOARM 13:55 → 1ANU 18:40
PROVIDERS: ADMIT Psychiatry & Neurology Psychiatry; ATTEND Psychiatry & Neurology Psychiatry